=== PATIENT | female | born 1965 | race Caucasian/White ===

== ENCOUNTER → 2019-04-27 | Outpatient (CLI) | payer OTHER ==
[~2019-04-27] MED LIST: ALEVE220 MG PO; AMITRIPTYLINE H25 M2 PO; AMITRIPTYLINE H25 M3 PO; CATAPRES-TTS 10.1 MG TD; CATAPRES-TTS 11 EACH TRANSDERM; CLONIDINE0.1 PO; FLEXERIL PO; FORTEO750 MCG/3 SUBQ; LISINOPRIL20 MG PO; MELOXICAM15 MG PO; MOBIC7.5 MG PO; NEURONTIN 300300 M1 PO; PERCOCET 5-3251 EACH PO; PROZAC40 MG PO; TRAMADOL 50 MG50 MG PO; VITAMIN D35000 UNIT PO
== END ==
LOC: M.PC 12:30
DX: M25.561 Pain in right knee (principal); R23.0 Cyanosis; G90.522 Complex regional pain syndrome I of left lower limb

== ENCOUNTER → 2019-06-01 | Outpatient (CLI) | payer OTHER ==
[~2019-06-01] MED LIST changes: -LISINOPRIL20 MG PO; +LISINOPRIL40 MG PO; +TOPROL XL25 MG PO
--- NOTE | ~2019-06-01 | PAINCON ---
[address] [address] PAIN MANAGEMENT CONSULTATION Name: SHEILA GARLAND Room: [facility] SHALONDA PrinceAnthony#: [id number] Admission: 06/01/19 Attend Phys: José Luis Lopez MD Discharge: Date of : 65 Report #: [id number] THIS REPORT FOR: //name// CC: José Luis Galloway DATE OF SERVICE: 06/01/2019 CHIEF COMPLAINT: "Pain radiating down into the back of my right leg." HISTORY: The patient is a 54-year-old female who has been seen in the pain clinic because of pain in the low back area. The patient has been experiencing pain that radiates down the posterior portion of her leg. There is quite a bit of cramping associated with it. She has had chronic pain because of complex regional pain syndrome involving her left leg. She has had a number of surgeries on the left side. Does walk with use of a cane. She has used medications to help with the pain and muscle spasms. Feels that the Flexeril medication is helpful, has been using gabapentin and found that amitriptyline at bedtime is efficacious. She has returned today for an epidural injection to help quell the pain and discomfort. Notes that the pain is worse in the cold weather. Today's temperature has fallen from previous days. Notes that walking, sitting and standing can be problematic. ALLERGIES: LATEX. CURRENT MEDICATIONS: Amitriptyline 25 mg, cyclobenzaprine, cyclobenzaprine/Flexeril 10 mg, Prozac 40 mg, gabapentin 300 mg t.i.d., Zestril 40 mg daily, meloxicam 15 mg daily, metoprolol has been newly added to her regimen. PAIN CLINIC ASSESSMENT AND PQRS: 1. The patient is not being treated for rheumatoid arthritis. Does have some arthritic changes in her left ankle as well as in her back. She has had a compression fracture at L1. 2. Height 5 feet 1 inch, weight 175 pounds, BMI is 33. 3. Vital signs: Blood pressure 157/99, heart rate 115, respiratory rate 16, room air saturation 98% saturation 96%. 4. Pain intensity 11/21. 5. Fall risk. The patient has not fallen since the last visit. 6. Blood thinner. The patient is not on a blood thinning medication. 7. Hypertension. The patient is being treated for hypertension. 8. Opioids greater than 6 weeks. The patient is not on a chronic opioid regimen. 9. Risk assessment tool, low for opioid use. 10. Functional assessment tool has been reviewed. 11. Recreational drugs: [place] [address] PAIN MANAGEMENT CONSULTATION Name: IRIS GARLANDHEIKE WINN [id number] Admission: 06/01/19 Attend Phys: José Luis Lopez MD Discharge: Date of : 65 Report #: [id number] 12. Tobacco: The patient denies. 13. Alcohol. The patient denies. PHYSICAL EXAMINATION: GENERAL: The patient is a well-developed, well-nourished white female. Appears her stated age. She is alert and oriented. Slightly obese. HEART: Regular rate. ABDOMEN: Slightly protuberant. EXTREMITIES: Upper extremity muscle strength judged to be 5/5 for the major muscle groups. MUSCULOSKELETAL: The patient without significant scoliosis, kyphosis or lordosis. The patient walks with a brace on her left leg. Uses a cane to help ambulate. Has pain and discomfort in the L5-S1 dermatomal distribution with pain radiating down the posterior portion of her right leg with cramping, numbness, tingling and sensory changes. IMPRESSION: 1. Low back pain with pain radiating down the L5-S1 dermatomal distribution. 2. History of reflex sympathetic dystrophy of the left leg. 3. Left knee pain. Continues to wear a brace. 4. Left foot pain. Has had a number of ankle surgeries. RECOMMENDATIONS: We discussed treatment options with the patient. Risks and benefits of an epidural steroid injection were discussed. They include but are not limited to infection, worsening pain, no improvement in pain, bleeding, nerve damage and the patient elects to proceed. PROCEDURE NOTE: The patient was taken to the procedure area. She was then assisted in getting on examination table. Her back was sterilely prepped with a Betadine solution. Fluoroscopy using anterior, posterior as well as lateral viewing were implemented. A 25-gauge needle was then used to anesthetize the skin area. A 17-gauge Tuohy with loss of resistance technique was then advanced at the L5-S1 area. Aspiration was negative. A total of 80 mg Depo-Medrol, 40 mg triamcinolone and 2 mL of 0.25% bupivacaine was injected. The patient tolerated the procedure well. There were no complications. She remained in the Pain Clinic for an appropriate amount of time. She will follow up in the future as needed. We would like to thank you for letting us participate in her care. The patient did have some trauma to her left hand. States that she was moving a marble top. It rolled across her ring and little finger on the left side. Noted some pain and discomfort. Notes some swelling and some black and blue changes in the ring finger. Notes that there is quite a bit of soreness is unable to move it. X-ray was taken and there was no gross fracture noted. The patient states that she will follow up with her doctor in regards to her fingers should [place] [address] PAIN MANAGEMENT CONSULTATION Name: SHEILA GARLAND Room: [facility]#: [id number] Admission: 06/01/19 Attend Phys: José Luis Lopez MD Discharge: Date of : 65 Report #: [id number] We would like to thank you for letting us participate in her care. We hope she continues to improve. By: [id number]. Donald Lopez MD /nt
== END | disposition home or self-care (01) ==
LOC: M.RAD 04:44 → M.PC 04:44
DX: M54.16 Radiculopathy, lumbar region (principal); G90.522 Complex regional pain syndrome I of left lower limb; M25.562 Pain in left knee; M25.572 Pain in left ankle and joints of left foot; I10 Essential (primary) hypertension; Z98.890 Other specified postprocedural states; Z91.040 Latex allergy status; Z79.899 Other long term (current) drug therapy

== ENCOUNTER → 2020-06-25 | Outpatient (CLI) | payer OTHER | LOC: M.PC 06-18 12:00 | PROVIDERS: ATTEND Anesthesiology Pain Medicine | DX: R26.89 Other abnormalities of gait and mobility (principal); M25.562 Pain in left knee; G89.4 Chronic pain syndrome; Z87.39 Personal history of other diseases of the musculoskeletal system and connective tissue; Z88.8 Allergy status to other drugs, medicaments and biological substances; Z79.899 Other long term (current) drug therapy ==